=== PATIENT | female | born 1935 | race Caucasian/White ===

== ENCOUNTER 2019-08-03 16:50 | Inpatient (IN) | payer MEDICARE, BC ==
[~2019-08-03] VITALS: Ht 167.6 cm; Wt 61.2 kg
--- NOTE | 2019-08-03 17:06 | NUR ---
@bedside, MSE in progress
[2019-08-03 17:37] LABS: BASOPHILS % (AUTO) 0.5 % (0.0-2.0); EOSINOPHILS # (AUTO) 0.2 K/uL (0.0-0.7); EOSINOPHILS % (AUTO) 2.8 % (0.0-7.0); HEMATOCRIT 38.5 % (31.2-41.9); HEMOGLOBIN 12.8 g/dL (10.9-14.3); LYMPHOCYTES # (AUTO) 1.4 K/uL (20.0-40.0); LYMPHOCYTES % (AUTO) 17.4 % (20.5-51.5); MEAN CORPUSCULAR HEMOGLOBIN 29.8 uug (24.7-32.8); MEAN CORPUSCULAR HGB CONC 33 g/dL (32.3-35.6); MEAN CORPUSCULAR VOLUME 90.1 fL (75.5-95.3); MONOCYTES # (AUTO) 0.7 K/uL (2.0-10.0); MONOCYTES % (AUTO) 8.4 % (0.0-11.0); NEUTROPHILS # (AUTO) 5.8 K/uL (1.8-8.9); NEUTROPHILS % (AUTO) 70.9 % (38.5-71.5); PLATELET COUNT (AUTO) 198 K/uL (179-408); RED BLOOD CELL COUNT(AUTO) 4.28 MIL/uL (3.63-4.92); WHITE BLOOD COUNT (AUTO) 8.2 K/uL (3.8-11.8)
[2019-08-03 17:44] LABS: CREATININE 0.9 mg/dL (0.6-1.3); POTASSIUM 4.4 mmol/L (3.5-5.1)
--- NOTE | 2019-08-03 17:49 | NUR ---
Patient is back from radiology department, pending urine specimen & blood results@this time
[2019-08-03 17:50] LABS: BILIRUBIN,DIRECT 0.1 mg/dL (0.0-0.2); BILIRUBIN,TOTAL 0.5 mg/dL (0.2-1.0); TOTAL PROTEIN, SERUM 6.6 g/dL (6.4-8.2)
[2019-08-03 18:10] LABS: *BILIRUBIN,URIN NEGATIVE (NEGATIVE); *CLARITY,URINE CLEAR (CLEAR); *COLOR,URINE YELLOW (YELLOW); *KETONES,URINE NEGATIVE (NEGATIVE); *UROBILINOGEN,URINE 0.2 E.U./dl (NORMAL); LEUKOCYTE ESTERASE ,URINE NEGATIVE (NEGATIVE); NITRITE, URINE NEGATIVE (NEGATIVE); UGLUCOSE TRACE (NEGATIVE)
[2019-08-03 18:17] LABS: *BLOOD, URINE TRACE (NEGATIVE); MUCUS,URINE MANY /LPF (0-FEW); SQUAMOUS EPITHELIAL CELL,UR FEW /HPF (NONE SEEN)
[2019-08-03] MEDS ORDERED: Z GUARD REMEDY PASTE 57 GM TUBE TOP PRN (18:45)
[2019-08-03] MEDS ORDERED: MAGNESIUM HYDROXIDE 30 ML LIQUID UDC PO PRN (18:45)
[2019-08-03] MEDS ORDERED: ONDANSETRON 4 MG/2 ML VIAL IV PRN (18:45)
[2019-08-03] MEDS ORDERED: HYDROCODONE/APAP 5-325MG TABLET PO PRN (18:45)
[2019-08-03] MEDS ORDERED: ACETAMINOPHEN 325 MG TABLET PO PRN (18:45)
--- NOTE | 2019-08-03 19:00 | NUR ---
PER DR FREDDY KERN SPOKE WITH ALDEN BARBOSA. ACCEPTED PATIENT.
--- NOTE | 2019-08-03 20:05 | NUR ---
CALLED TO GIVE REPORT NURSE IS NOT AVAILABLE AT THIS TIME.
[2019-08-03 21:16] VITALS: BP 145/62
[2019-08-03] MEDS: IV NS 1000 ML 1,000 ML IV PRN (23:04)
[2019-08-04 00:23] VITALS: BP 130/50
[2019-08-04 06:00] VITALS: BP_SYST 126; BP_SYST 132; BP_SYST 139; BP_DIAS 43; BP_DIAS 79; BP_DIAS 88
[2019-08-04 06:05] LABS: BASOPHILS % (AUTO) 0.6 % (0.0-2.0); EOSINOPHILS # (AUTO) 0.3 K/uL (0.0-0.7); EOSINOPHILS % (AUTO) 4.4 % (0.0-7.0); HEMOGLOBIN 11.8 g/dL (10.9-14.3); LYMPHOCYTES # (AUTO) 1.8 K/uL (20.0-40.0); LYMPHOCYTES % (AUTO) 31.1 % (20.5-51.5); MEAN CORPUSCULAR HEMOGLOBIN 30.2 uug (24.7-32.8); MEAN CORPUSCULAR HGB CONC 34 g/dL (32.3-35.6); MEAN CORPUSCULAR VOLUME 89.2 fL (75.5-95.3); MONOCYTES # (AUTO) 0.5 K/uL (2.0-10.0); MONOCYTES % (AUTO) 9.3 % (0.0-11.0); NEUTROPHILS # (AUTO) 3.2 K/uL (1.8-8.9); NEUTROPHILS % (AUTO) 54.6 % (38.5-71.5); PLATELET COUNT (AUTO) 173 K/uL (179-408); RED BLOOD CELL COUNT(AUTO) 3.92 MIL/uL (3.63-4.92); WHITE BLOOD COUNT (AUTO) 5.8 K/uL (3.8-11.8)
[2019-08-04 06:36] LABS: CREATININE 0.8 mg/dL (0.6-1.3); MAGNESIUM 1.7 mg/dL (1.8-2.4); PHOSPHOROUS 3.9 mg/dL (2.5-4.9)
--- NOTE | 2019-08-04 07:15 | NUR ---
RECEIVED PATIENT IN BED AWAKE ALERT AND AWARE ANSWERED QUESTIONS APPROIATELY WHEN ASKED DENIES PAIN OR DISCOMFORTS AT THIS TIME ON ROOM AIR WITH NO SHORTNESS OF BREATH CALL LIGHTS AND PERSONAL BELONGINGS ARE WITHIN EASY REACH AT THIS TIME MADE COMFORTABLE AND WILL CONTINUE TO OBSERVE.
[2019-08-04] MEDS ORDERED: HOME MED MISCELLANEOUS XX SCH (11:00)
[2019-08-04 11:52] VITALS: BP 112/55
[2019-08-04] MEDS: CHOLECALCIFEROL 1,000 UNIT TABLET PO SCH (12:50)
[2019-08-04] MEDS: METOPROLOL SUCCINATE XL 25 MG TAB.SR.24H PO SCH (12:51)
[2019-08-04] MEDS ORDERED: MAGNESIUM OXIDE 400 MG TABLET PO ONE (13:00)
[2019-08-04] MEDS: OXYBUTYNIN CHLORIDE 5 MG TABLET PO SCH ×2 (13:49→21:00)
--- NOTE | 2019-08-04 14:00 | NUR ---
PATIENT ASSISTED TO AND FROM THE BATHROOM AMBULATING WITH SLOW STEADY GAIT DENIES DISCOMFORTS RESTING NOT IN DISTRESS AT THIS TIME
[2019-08-04 16:12] VITALS: BP 136/63
[2019-08-04] MEDS ORDERED: WARFARIN SODIUM 4 MG TABLET PO SCH (17:00)
--- NOTE | 2019-08-04 18:08 | NUR ---
COUMADIN GIVEN ORDERED WILL RECHECK INR TOMORROW PATIENT IS ALERT AND VERBALLY RESPONSIVE DENIES DISCOMFORTS NOT IN DISTRESS AT THIS TIME
[2019-08-04 20:46] VITALS: BP 134/59
[2019-08-04] MEDS: IV NS 1000 ML 1,000 ML IV PRN (21:34)
[2019-08-05 00:51] VITALS: BP 141/71
[2019-08-05 05:46] VITALS: BP 137/55
--- NOTE | 2019-08-05 06:43 | NUR ---
Patient slept well. No SOB noted. No complaints of pain. IV on RFA intact and patent w/ IVF infusing. All needs attended. Will endorse accordingly
[2019-08-05] MEDS ORDERED: PANTOPRAZOLE SODIUM 40 MG TABLET.DR PO SCH (07:00)
--- NOTE | 2019-08-05 07:20 | NUR ---
Received patient in bed asleep, on room air. IVF NS @ 75 infusing. No distress noted, call light and belongings within reach.
[2019-08-05] MEDS: OXYBUTYNIN CHLORIDE 5 MG TABLET PO SCH (08:19)
[2019-08-05] MEDS: CHOLECALCIFEROL 1,000 UNIT TABLET PO SCH (08:19)
[2019-08-05] MEDS: METOPROLOL SUCCINATE XL 25 MG TAB.SR.24H PO SCH (08:23)
[2019-08-05 11:08] VITALS: BP 113/43
[2019-08-05] MEDS: IV NS 1000 ML 1,000 ML IV PRN (12:38)
[2019-08-05 13:55] VITALS: BP_SYST 109; BP_SYST 113; BP_SYST 127; BP_DIAS 46; BP_DIAS 50
--- NOTE | 2019-08-05 14:00 | NUR ---
PATIENT SEEN AND EXAMINED BY STEVEN WITH ORDER TO DISCHARGE HOME TODAY PATIENT AWARE AND STATED HER THAT HER MADELINE WILL PICK HER UP THIS AFTERNOON.
--- NOTE | 2019-08-05 15:05 | NUR ---
PATIENT DISCHARGED PICKED UP BY HER IN SATISFACTORY CONDITION WITH DISCHARGE INSTRUCTIONS AND WAS ALSO SEEN BY DR GANT THE CONSULTATIVE SALES ASSOCIATE AND PATIENT INSTRUCTED TO AVOID ETOH AND TO HOLD OFF ON HER LUNESTA AND TO CONFIRM WITH HER CONSULTATIVE SALES ASSOCIATE AND SHE EXPRESSED UNDERSTANDING
[2019-08-05] MEDS ORDERED: WARFARIN SODIUM 5 MG TABLET PO SCH (17:00)
== END 2019-08-05 15:05 | disposition home or self-care (01) | DRG 309 ==
LOC: ER 16:51 → TELE3 20:47
PROVIDERS: ADMIT Nurse Practitioner Acute Care; ATTEND Nurse Practitioner Acute Care
DX: I48.0 Paroxysmal atrial fibrillation (principal); D68.59 Other primary thrombophilia; Z79.01 Long term (current) use of anticoagulants; E83.42 Hypomagnesemia; E11.65 Type 2 diabetes mellitus with hyperglycemia; E86.0 Dehydration; R79.89 Other specified abnormal findings of blood chemistry; Z95.0 Presence of cardiac pacemaker; Z86.73 Personal history of transient ischemic attack (TIA), and cerebral infarction without residual deficits; R29.6 Repeated falls; M41.9 Scoliosis, unspecified; M16.10 Unilateral primary osteoarthritis, unspecified hip; M47.898 Other spondylosis, sacral and sacrococcygeal region; I34.0 Nonrheumatic mitral (valve) insufficiency; G47.00 Insomnia, unspecified; Z79.899 Other long term (current) drug therapy; K21.9 Gastro-esophageal reflux disease without esophagitis; R79.1 Abnormal coagulation profile
CPT/HCPCS: 36415; 70030-TC; 70450; 71045; 72125; 73502; 83735; 84100; 85025; 85610; 85730; 87086; 93005; 93307; A4663; G0378; J7030

== ENCOUNTER 2020-02-26 11:43 | Emergency (ER) | payer MEDICARE, BC ==
[~2020-02-26] VITALS: Ht 165.1 cm; Wt 60.8 kg
[~2020-02-26 11:43] MED LIST: CHOLECALCIFEROL PO; ESZO1TAB11 PO; METO-356 PO; PANT20TA2 PO; WARF4TAB41 PO; WARF5TAB PO
[2020-02-26] MEDS ORDERED: ACETAMINOPHEN ES 500 MG TABLET PO ONE (12:15)
--- NOTE | 2020-02-26 13:21 | NUR ---
Per Dr. Cowan, pt is table for discharge. DC instructions given and reviewed with patient. Verbalized understanding. Left ER in stable condition. Assisted to vehicle via w/c.
[2020-02-26 13:22] VITALS: BP 129/62
== END 2020-02-26 13:23 | disposition home or self-care (01) ==
LOC: ER 11:43
DX: S90.121A Contusion of right lesser toe(s) without damage to nail, initial encounter (principal); W18.30XA Fall on same level, unspecified, initial encounter; Y93.E8 Activity, other personal hygiene; Y92.012 Bathroom of single-family (private) house as the place of occurrence of the external cause; I48.91 Unspecified atrial fibrillation; Z79.01 Long term (current) use of anticoagulants; Z95.0 Presence of cardiac pacemaker; Z88.0 Allergy status to penicillin; Z85.3 Personal history of malignant neoplasm of breast; Z88.2 Allergy status to sulfonamides; I48.92 Unspecified atrial flutter; G31.9 Degenerative disease of nervous system, unspecified
CPT/HCPCS: 70450; 73660; 93005; A4663